=== PATIENT | female | born 1995 | race Asian ===

== ENCOUNTER 2018-05-22 15:51 | Emergency (ER) | payer SELFPAY ==
[~2018-05-22] VITALS: Ht 165.1 cm; Wt 65.8 kg
[2018-05-22 15:56] VITALS: BP 114/93
[2018-05-22 16:48] LABS: HEMATOCRIT 42.4 % (36-48); HEMOGLOBIN 14.3 g/dL (12.0-16.0); MEAN CORPUSCULAR HEMOGLOBIN 31 pg (27-31); MEAN CORPUSCULAR HGB CONC 34 g/dL (33-37); MEAN CORPUSCULAR VOLUME 91.8 fL (80-94); PLATELET COUNT (AUTO) 221 K/uL (140-450); RED BLOOD CELL COUNT(AUTO) 4.62 MIL/uL (4.20-5.40); RED CELL DISTRIBUTION WIDTH 12.2 % (11.6-13.7); WHITE BLOOD COUNT (AUTO) 8.1 K/uL (4.5-11.0)
[2018-05-22] MEDS: LORazepam 2 MG/ML VIAL IM ONE (16:49)
[2018-05-22] MEDS: HALOPERIDOL IM 5 MG/ML VIAL IM ONE (16:54)
[2018-05-22 16:58] LABS: CARBON DIOXIDE 19.3 mmol/L (21-32); CHLORIDE 104 mmol/L (98-107); CREATININE 0.7 mg/dL (0.6-1.3); GFR ARICAN-AMERICAN 137 mL/min (>90); GLUCOSE 90 mg/dL (74-106); POTASSIUM 3.3 mmol/L (3.5-5.1); SODIUM SERUM 139 mmol/L (136-145); UREA NITROGEN, BLOOD 6 mg/dL (7-18)
[2018-05-22 17:04] LABS: ALBUMIN 3.5 g/dL (3.4-5.0); ASPARTATE AMINOTRANSFERASE 13 U/L (15-37); TOTAL BILIRUBIN 0.3 mg/dL (0.0-1.0)
[2018-05-22 17:05] LABS: EOSINOPHILS % (MANUAL) 4 % (0-4); LYMPHOCYTES % (MANUAL) 23 % (20-46); MONOCYTES % (MANUAL) 6 % (5-12)
[2018-05-22 17:08] LABS: SALICYLATE < 2.8 mg/dL (2.8-20.0)
[2018-05-22 17:09] LABS: ACETAMINOPHEN < 0.5 ug/ml (10-30)
[2018-05-22] MEDS: diphenhydrAMINE 50 MG/ML VIAL IM ONE (17:19)
[2018-05-22] MEDS: NACL 0.9% 1,000 ML IV ONE (17:35)
[2018-05-22 20:55] LABS: BARBITURATE, URINE NEG. ng/ml (NEG <=200); BENZODIAZEPINE, URINE NEG. ng/mL (NEG <=200); CANNABINOID, URINE POS. ng/mL (NEG <=50); COCAINE, URINE NEG. ng/mL (NEG <=300); OPIATE, URINE NEG. ng/mL (NEG <=2000); PHENCYCLIDINE SCREEN,URINE NEG. ng/mL (NEG <=25)
[2018-05-22 22:31] VITALS: BP 118/72
== END 2018-05-22 22:30 | disposition home or self-care (01) ==
LOC: MED 15:51
DX: R45.851 Suicidal ideations (principal); R45.850 Homicidal ideations; F10.129 Alcohol abuse with intoxication, unspecified; F43.9 Reaction to severe stress, unspecified
CPT/HCPCS: 36415; 72040; 80053; 80305; 81025; 85025; 93005; 96372; 99285; G0480; G0482; J1200; J1630; J2060; J7030